=== PATIENT | female | born 1985 | race Caucasian/White ===

== ENCOUNTER 2016-03-16 11:14 | Inpatient (IN) | payer MEDICAID ==
[~2016-03-16] VITALS: Ht 142.2 cm; Wt 62.3 kg
[~2016-03-16 11:14] MED LIST: NIFEdipine PO; PREN-39
[2016-03-16 11:26] VITALS: Ht 142.2 cm; Wt 62.3 kg
[2016-03-16 11:30] VITALS: BP 124/78; PULSE 80; RESP 18
[2016-03-16] MEDS ORDERED: CARBOPROST 250 MCG INJ IM PRN ×2 (12:00→20:30)
[2016-03-16] MEDS ORDERED: MISOPROSTOL 200 MCG TAB PR PRN ×2 (12:00→20:30)
[2016-03-16] MEDS ORDERED: LACTATED RINGER'S 1,000 ML IV ONE (12:00)
[2016-03-16] MEDS ORDERED: OXYTOCIN 30 UNITS/LR 500 ML IV SCH (12:00)
[2016-03-16] MEDS ORDERED: CEFAZOLIN 2 GM/50 ML (PMX) 50 ML IV SCH (12:00)
[2016-03-16] MEDS ORDERED: OXYTOCIN 30 UNITS/LR 500 ML IV PRN ×2 (12:00→20:30)
[2016-03-16] MEDS ORDERED: METHYLERGONOVINE 0.2 MG INJ IM PRN ×2 (12:00→20:30)
[2016-03-16 12:20] LABS: EOSINOPHILS % 0.1 % (0.0-7.0); HEMATOCRIT 39.1 % (37.0-47.0); HEMOGLOBIN 13.3 g/dl (12.0-16.0); LYMPHOCYTES % 9.6 % (15.0-51.0); MEAN CORPUSCULAR VOLUME 94.2 fl (82.0-101.0); MEAN PLATELET VOLUME 9.4 fl (7.4-10.4); MONOCYTE # 0.6 10^3/ul (0.3-0.9); MONOCYTES % 5.5 % (0.0-11.0); NEUTROPHIL # 9.1 10^3/ul (1.6-7.5); NEUTROPHILS % 84.8 % (39.0-77.0); PLATELET COUNT 150 10^3/UL (140-440); RED BLOOD COUNT 4.15 10^6/ul (4.20-5.40); RED CELL DISTRIBUTION WIDTH 13.8 % (11.5-14.5); UNCORRECTED WBC 10.7 10^3/ul (4.8-10.8); WHITE BLOOD COUNT 10.7 10^3/ul (4.8-10.8)
[2016-03-16 12:23] LABS: CONDITION 1
[2016-03-16 12:28] LABS: INR 0.87; PROTIME 11.8 Sec (12.2-14.2); PT RATIO 0.9
[2016-03-16 12:29] LABS: PARTIAL THROMBOPLASTIN TIME 29.4 Sec (25.0-35.0)
[2016-03-16] MEDS ORDERED: LACTATED RINGER'S 1,000 ML IV SCH (13:30)
[2016-03-16] MEDS ORDERED: morphine SULFATE/PF (10 MG/10 ML) INJ ONE (15:52)
[2016-03-16] MEDS ORDERED: FENTAnyl 50 MCG/ML VIAL ONE (16:04)
[2016-03-16] MEDS ORDERED: OXYTOCIN 30 UNITS/LR 500 ML IV ONE (16:10)
[2016-03-16] MEDS ORDERED: EPHEDrine SULFATE 50 MG/5 ML SYG ONE (16:10)
[2016-03-16] MEDS ORDERED: ZOLPIDEM 5 MG TAB PO PRN (16:30)
[2016-03-16] MEDS ORDERED: NALOXONE (0.4 MG/ML) INJ IV PRN (16:30)
[2016-03-16] MEDS ORDERED: HYDROmorphONE 1 MG/ML SYG IV PRN ×2 (16:30)
[2016-03-16] MEDS ORDERED: ONDANSETRON 4 MG INJ IV PRN (16:30)
--- NOTE | 2016-03-16 17:20 | HP ---
Date/Time of Note Date/Time of Note DATE: 03/16/16 TIME: 17:16 OB - History Hx of Present Free Text/Dictation admitted for repeat C/S at term Last Menstrual Period: June 27, 2015 Estimated Due Date: Mar 23, 2016 : 2 Para: 1 Ultrasounds: Normal mid trimester US Obstetrical Complications: None Medical Complications: Other (Wilosn's palsy ) Past Family/Social History * Past Medical, Surgical, Family and Obstetric Histories reviewed from chart. Blood Type: O+ Rubella: immune RPR/VDRL: Negative GBS Status: Negative HBsAG: Negative OB Admission Exam Vital Signs Vital Signs Vital Signs Date Time Temp Pulse Resp B/P Pulse Ox O2 Delivery O2 Flow Rate FiO2 03/16/16 11:30 98.9 80 18 124/78 Room Air Physical Exam HEENT: Abnormal (left sided facial paralysis) Heart: Rhythm Normal Lungs: Clear Abdomen: WNL Extremities: Normal Reflexes: Normal Cervical Dilatation: 3cm Effacement: 50% Station: -3 Membranes: Intact Heart Rate: 130's Accelerations: Accelerations Present Decelerations: No Decelerations Varibility: Marked Contractions on Admission: 6-10 Minutes Apart Date/Time Contractions Began: ? Frequency of Contractions: ? Duration: ? Intensity: Moderate Last 72 hours Lab Results CBC & BMP 03/16/16 11:55 OB Assessment/Plan Other Assessment: term gestation previous C/S X 1 labor pains Other plan: repeat C/S BELKIS WHITING MD Mar 16, 2016 17:20
--- NOTE | 2016-03-16 17:23 | OPR ---
Operative Report Planned Procedure Procedure date Mar 16, 2016 Procedure(s) repeat C/S Performed by: BELKIS WHITING MD Assisting provider: SATHYA ENCARNACION M.D. Anesthesiologist: TARYN DEGROOT Anesthesia Type: spinal Procedure Description Under satisfactory anaesthesia a Pfannenstiel incision was made two fingerbreadth above and parallel to the symphysis of pubis around the previous scar and previous scar was removed Incision was extended laterally to the border of the Recti muscles on either sides. Incision was carried down with sharp and blunt dissection until fascia was reached. Anterior Recti muscle fascia was incised in mid portion and incision extended laterally to the border of skin incision. Fascia was mobilized from muscle superiorly and Recti muscles were from midline using sharp and blunt dissection. Peritoneum was visualized; Avoiding bowel and bladder it was incised . Incision was extended superiorly and inferiorly. Bladder blade was placed. Posterior peritoneum covering the lower segment of the uterus and lower segment of the uterus were incised.Low transverse uteine incision was made on lower segment of the uterus. Incision extended laterally to the border of Round Lig. on either sides and baby was delivered from OT. position . Amniotic fluid appeared clear. Cord blood was obtained and cord had 3 vessels . Placenta was delivered spontaneously and appeared intact and complete. Intrauterine cavity was rubbed with a laparotomy sponge. Uterine incision was closed in 2 layers using running stitches of No1 Monocryl. Hemostasis appeared secure. Ovaries and Fallopian tubes were within normal limits. Announcing needle, lap sponge and instrument count to be correct abdomen was closed in layers as follows: Peritoneum and Recti muscles with running stitches of 20 Vicryl. Fascia with running stitch of No 1 PDS. Subcutaneous tissue with running stitches of 20 Chromic and skin was closed using yoni. Patient tolerated the procedure well and was transferred to [facility] in good condition. Post-Procedure Post-procedure diagnosis S/P C/S Findings: Live Baby Specimen removed: No Complications: None Pt Condition post procedure: stable Disposition: PACU Physician Certification I, the undersigned physician, hereby certify that I have discussed the procedure described in this consent form with this patient (or the patient's legal customer field representative), including: * The risk and benefits of the procedure; * Any adverse reactions that may reasonably be expected to occur; * Any alternative efficacious methods of treatment which may be medically viable ; * The potential problems that may occur during recuperation; * Potential for blood transfusion and associated risks/benefits; and * Any research or economic interest I may have regarding this treatment. I further certify that the patient/legally responsible person was encouraged to ask question and that all questions were answered. BELKIS WHITING MD Mar 16, 2016 17:23
--- NOTE | 2016-03-16 19:29 | DELSUM ---
Delivery Summary A-C Datetime Report Generated by CPN: 03/16/2016 19:29 DELIVERY PERSONNEL Pay Agent: Sherman, Shila MATERNAL INFORMATION Delivery Anesthesia: Spinal Medications in Delivery: see anesthesia Estimated Blood Loss (ml): 500 Placenta Cultured: No Maternal Complications: None Other Maternal Complications: RIGHT SIDE PARALYSIS ON FACE LABOR SUMMARY EDC: 03/23/2016 00:00 No. Babies in Womb: 1 Attempted: No Labor Anesthesia: None LABOR INFORMATION Reason for Induction: Not Applicable Oxytocin: N/A Group B Beta Strep: Negative Antibiotics # of Doses: ancef 2 grams X1 dose Steroids Given: None Reason Steroids Not Administered: Not Applicable MEMBRANES Membranes Rupture Method: Artificial Rupture of Membranes: 03/16/2016 16:24 Length of Rupture (hr): 0.02 Amniotic Fluid Color: Clear Amniotic Fluid Amount: Moderate STAGES OF LABOR Stage 3 hr: 0 Stage 3 min: 1 CSECTION DELIVERY Primary Indication: Repeat Elective Secondary Indication: Repeat Elective CSection Urgency: Elective CSection Incidence: Repeat Labor: N/A Elective: N/A CSection Incision: Lower Uterine Transverse BABY A INFORMATION Infant Delivery Date/Time: 03/16/2016 16:25 Method of Delivery: Born in Route : No : N/A Forceps: N/A Vacuum Extraction: N/A Shoulder Dystocia : N/A SHOULDER DYSTOCIA BABY A Infant Delivery Date/Time: 03/16/2016 16:25 PRESENTATION/POSITION BABY A Presentation: Cephalic Presentation: Cephalic Cephalic Presentation: Vertex Vertex Position: Left Occipital Anterior Breech Presentation: N/A PLACENTA INFORMATION BABY A Placenta Delivery Time : 03/16/2016 16:26 Placenta Method of Delivery: Manual Removal Placenta Status: Delivered SCORES BABY A Heart Rate 1 min: >100 bpm Resp Effort 1 min: Good Cry Reflex Irritability 1 min: Cough/Sneeze/Pulls Away Muscle Tone 1 min: Active Motion Color 1 min: Blue/Pale Resuscitation Effort 1 min: Tactile Stimulation SCORE 1 MIN: 8 Heart Rate 5 min: >100 bpm Resp Effort 5 min: Good Cry Reflex Irritability 5 min: Cough/Sneeze/Pulls Away Muscle Tone 5 min: Active Motion Color 5 min: Body [place], Extremit Blue SCORE 5 MIN: 9 INFORMATION BABY A Gestational Age at Delivery: 39.0 Gestational Status: Full Term- 39- 40.6 Weeks Outcome : Liveborn Infant Condition : Stable Sex: Male IDENTIFICATION/MEDS BABY A ID Band Number: [id number] ID Band Location: Right Leg; Left Arm Sensor Applied: Yes Sensor Number: [id number] Sensor Location : Cord Clamp Vitamin K Given : Aquamephyton 1 mg IM; Left Thigh Erythromycin Given: Given Both Eyes WEIGHT/LENGTH BABY A Birthweight (gm): 3530 Infant Weight (lb): 7 Infant Weight (oz): 13 Infant Length (in): 19.50 Infant Length (cm): 49.53 CORD INFORMATION BABY A No. Cord Vessels: 3 Nuchal Cord : N/A Cord Blood Taken: Yes Suction: Mouth; Nose ASSESSMENT BABY A Complications: None Physical Findings at Delivery: Within Normal Limits Respirations: Appears Normal Control Panel Assembler/ALS Called : No Care By: KATERINA CARRASCO Transferred To: Remains with Mother
[2016-03-16 20:20] VITALS: BP 122/79; PULSE 103; RESP 20
[2016-03-16] MEDS ORDERED: ACETAMINOPHEN/CODEINE #3 TAB PO PRN (20:30)
[2016-03-16] MEDS ORDERED: NA PHOSPHATE/BIPHOS 133 ML ENEMA PR PRN (20:30)
[2016-03-16] MEDS ORDERED: LANOLIN 7 GM TUBE TOP PRN (20:30)
[2016-03-16] MEDS: CEFAZOLIN 2 GM/50 ML (PMX) 50 ML IV SCH (20:37)
[2016-03-16] MEDS: SENNA/DOCUSATE NA (8.6MG/50MG) TAB PO SCH (21:00)
[2016-03-16] MEDS: IBUPROFEN 800 MG TAB PO SCH (22:00)
[2016-03-16] MEDS: LACTATED RINGER'S 1,000 ML IV SCH (22:10)
[2016-03-17 00:40] VITALS: BP 109/65; PULSE 110; RESP 18
[2016-03-17] MEDS: CEFAZOLIN 2 GM/50 ML (PMX) 50 ML IV SCH ×2 (04:27→11:54)
[2016-03-17 04:32] VITALS: BP 104/59; PULSE 110; RESP 16
[2016-03-17] MEDS: LACTATED RINGER'S 1,000 ML IV SCH ×2 (05:06→12:21)
[2016-03-17] MEDS: CLINDAMYCIN 300 MG CAP PO SCH ×4 (05:39→23:37)
[2016-03-17] MEDS: IBUPROFEN 800 MG TAB PO SCH ×3 (06:00→21:41)
[2016-03-17 07:16] LABS: EOSINOPHILS % 0.1 % (0.0-7.0); HEMATOCRIT 33.9 % (37.0-47.0); HEMOGLOBIN 11.7 g/dl (12.0-16.0); MEAN CORPUSCULAR HEMOGLOBIN 32.4 pg (29.0-33.0); MEAN CORPUSCULAR HGB CONC 34.4 g/dl (32.0-37.0); MEAN CORPUSCULAR VOLUME 94.2 fl (82.0-101.0); MEAN PLATELET VOLUME 9.4 fl (7.4-10.4); MONOCYTE # 0.4 10^3/ul (0.3-0.9); MONOCYTES % 3.1 % (0.0-11.0); NEUTROPHIL # 11.3 10^3/ul (1.6-7.5); NEUTROPHILS % 88.8 % (39.0-77.0); PLATELET COUNT 138 10^3/UL (140-440); RED CELL DISTRIBUTION WIDTH 13.3 % (11.5-14.5); UNCORRECTED WBC 12.7 10^3/ul (4.8-10.8); WHITE BLOOD COUNT 12.7 10^3/ul (4.8-10.8)
[2016-03-17 07:39] LABS: CONDITION 1
[2016-03-17 08:00] VITALS: BP 113/65; PULSE 102; RESP 18
--- NOTE | 2016-03-17 08:53 | PN ---
Date/Time of Note Date/Time of Note DATE: 03/17/16 TIME: 08:51 Assessment/Plan VTE Prophylaxis VTE Prophylaxis Intervention: ambulation Lines/Catheters IV Catheter Type (from Nrs): Peripheral IV Assessment/Plan Assessment/Plan POD #1 S/P C/S will advance diet and ambulate Subjective 24 Hr Interval Summary NO BM passing flatus Exam/Review of Systems Vital Signs Vitals Vital Signs Date Time Temp Pulse Resp B/P Pulse Ox O2 Delivery O2 Flow Rate FiO2 03/17/16 04:32 98.8 110 16 104/59 Room Air 03/17/16 01:45 98 21 Intake and Output 03/16/16 03/16/16 03/17/16 15:00 23:00 07:00 Intake Total 2000 ml 175 ml 800 ml Output Total 600 ml 400 ml 1450 ml Balance 1400 ml -225 ml -650 ml Exam Free Text/Dictation VSS P/E: NL incision covered abdomen: soft BS + Results Result Diagram: 03/17/16 0627 BELKIS WHITING MD Mar 17, 2016 08:53
[2016-03-17] MEDS ORDERED: BISACODYL 10 MG SUPP PR ONE (10:00)
[2016-03-17] MEDS: SENNA/DOCUSATE NA (8.6MG/50MG) TAB PO SCH ×2 (10:04→21:41)
[2016-03-17 12:56] VITALS: BP 111/69; PULSE 106; RESP 18
[2016-03-17 16:00] VITALS: BP 114/73; PULSE 99; RESP 18
[2016-03-17] MEDS: OXYCODONE/ACETAMINOPHEN (5/325) TAB PO PRN (16:07)
[2016-03-17 20:00] VITALS: BP 114/62; PULSE 75; RESP 20
[2016-03-18] MEDS: OXYCODONE/ACETAMINOPHEN (5/325) TAB PO PRN ×3 (00:42→23:46)
[2016-03-18 04:14] VITALS: BP 110/65; PULSE 78; RESP 20
[2016-03-18] MEDS: CLINDAMYCIN 300 MG CAP PO SCH ×4 (05:40→23:46)
[2016-03-18] MEDS: IBUPROFEN 800 MG TAB PO SCH ×3 (05:40→21:59)
[2016-03-18 07:53] LABS: EOSINOPHILS % 0.1 % (0.0-7.0); HEMATOCRIT 31.7 % (37.0-47.0); LYMPHOCYTES # 1.1 10^3/ul (0.8-2.9); LYMPHOCYTES % 10.9 % (15.0-51.0); MEAN CORPUSCULAR HEMOGLOBIN 32.6 pg (29.0-33.0); MEAN CORPUSCULAR HGB CONC 34.6 g/dl (32.0-37.0); MEAN CORPUSCULAR VOLUME 94.1 fl (82.0-101.0); MONOCYTE # 0.5 10^3/ul (0.3-0.9); MONOCYTES % 4.8 % (0.0-11.0); NEUTROPHIL # 8.6 10^3/ul (1.6-7.5); NEUTROPHILS % 84.2 % (39.0-77.0); PLATELET COUNT 153 10^3/UL (140-440); RED BLOOD COUNT 3.37 10^6/ul (4.20-5.40); RED CELL DISTRIBUTION WIDTH 13.8 % (11.5-14.5); UNCORRECTED WBC 10.2 10^3/ul (4.8-10.8); WHITE BLOOD COUNT 10.2 10^3/ul (4.8-10.8)
[2016-03-18 07:55] LABS: CONDITION 1
[2016-03-18 08:00] VITALS: BP 121/76; PULSE 74; RESP 18
[2016-03-18] MEDS ORDERED: INFLUENZA VIRUS VACCINE 0.5 ML (DISPENSING) IM* ONE (09:00)
[2016-03-18] MEDS: SENNA/DOCUSATE NA (8.6MG/50MG) TAB PO SCH ×2 (09:16→21:59)
[2016-03-18] MEDS ORDERED: WITCH HAZEL/GLYCERIN PAD PR PRN (13:00)
[2016-03-18 15:37] VITALS: BP 132/72; PULSE 72; RESP 18
[2016-03-18 20:00] VITALS: BP 121/64; PULSE 70; RESP 20
--- NOTE | 2016-03-18 20:26 | DS ---
Date/Time of Note Date/Time of Note home next day DATE: 03/18/16 TIME: 20:24 Obstetrical Discharge Record Final Diagnosis Final Diagnosis: Term delivered Other Final Diagnosis S/P C/S Section Section: Repeat Condition on Discharge Physical Assessment Last Vitals: see nurses notes Voiding: Yes Bowel Movement: Yes Breast: Soft, non-tender, Filling Fundus: Firm Abdomen and Incision: soft bs + Incision: healing Episiotomy: NA Calf Tenderness: No Patient Condition: Good BELKIS WHITING MD Mar 18, 2016 20:26
--- NOTE | 2016-03-18 20:27 | DS ---
Date/Time of Note Date/Time of Note DATE: 03/18/16 TIME: 20:26 Discharge Summary Admission/Discharge Info Admit Date/Time Mar 16, 2016 at 11:14 Discharge Date/Time 03/19/2016 Final Diagnosis S/P C/S Patient Condition: Good Procedures repeat C/S Hx of Present Illness 30 y/o female had repeat C/S Hospital Course uncomplicated Home Meds Active Scripts [NIFEdipine] 10 MG CAP No Conflict Check, 20 MG PO Q6H, #60 0 Refills Prov:BELKIS WHITING MD 02/24/16 Reported Medications Vits W-Ca,Fe,Fa(<1MG) ( Vitamins) 1 Tab Tablet 01/13/10 Follow-up Plan 2 days in clinic for staple removal; Pending Labs Laboratory Tests Test 03/18/16 06:52 Basophils # 0.010^3/ul (0.0-0.1) Basophils % 0.0% (0.0-2.0) Eosinophils # 0.010^3/ul (0.0-0.5) Eosinophils % 0.1% (0.0-7.0) Hematocrit 31.7% (37.0-47.0) Hemoglobin 11.0g/dl (12.0-16.0) Lymphocytes # 1.110^3/ul (0.8-2.9) Lymphocytes % 10.9% (15.0-51.0) Mean Corpuscular Hemoglobin 32.6pg (29.0-33.0) Mean Corpuscular Hemoglobin Concent 34.6g/dl (32.0-37.0) Mean Corpuscular Volume 94.1fl (82.0-101.0) Mean Platelet Volume 9.0fl (7.4-10.4) Monocytes # 0.510^3/ul (0.3-0.9) Monocytes % 4.8% (0.0-11.0) Neutrophils # 8.610^3/ul (1.6-7.5) Neutrophils % 84.2% (39.0-77.0) Nucleated Red Blood Cells # 0.010^3/ul (0.0-0.0) Nucleated Red Blood Cells % 0.0/100WBC (0.0-0.0) Platelet Count 42797^3/UL (140-440) Red Blood Count 3.3710^6/ul (4.20-5.40) Red Cell Distribution Width 13.8% (11.5-14.5) White Blood Count 10.210^3/ul (4.8-10.8) BELKIS WHITING MD Mar 18, 2016 20:27
--- NOTE | 2016-03-18 20:28 | PD.PPDC ---
TOOL CRIB ATTENDANT Discharge Instruction Provider Information Physician Information 30 y/o female had repeat C/S Condition Patient Condition: Good Diet Diet: Resume Regular Diet Activity/Restrictions Activity: June Shower Restrictions: No Exercising No Lifting Nothing in the Vagina Return to Work or School: May 14, 2016 Wound/Drain Care Instructions Wound/Drain Care Instructions: Keep clean and dry Follow-up Follow-up with Physician: 2, Day/Days (in clinic for staple removal ) Return to clinic for TELEVISION [facility]ER[facility] Instructions: Fever greater than 101 Chills Excessive Vaginal Bleeding OB Instructions: Breast Tenderness Depression Surgical Instructions: Incisional Drainage Incisional Redness BELKIS WHITING MD Mar 18, 2016 20:28
[2016-03-18] MEDS ORDERED: IBUP800T25 PO (20:29)
[2016-03-18] MEDS ORDERED: PERCOCET PO (20:29)
[2016-03-19 04:33] VITALS: BP 114/64; PULSE 72; RESP 20
[2016-03-19] MEDS: CLINDAMYCIN 300 MG CAP PO SCH ×3 (05:26→17:13)
[2016-03-19] MEDS: IBUPROFEN 800 MG TAB PO SCH ×2 (05:26→14:00)
[2016-03-19 08:00] VITALS: BP 114/67; PULSE 81; RESP 18
[2016-03-19 08:26] LABS: EOSINOPHILS % 0.1 % (0.0-7.0); HEMATOCRIT 30.9 % (37.0-47.0); HEMOGLOBIN 10.7 g/dl (12.0-16.0); LYMPHOCYTES # 0.3 10^3/ul (0.8-2.9); LYMPHOCYTES % 3.3 % (15.0-51.0); MEAN CORPUSCULAR HEMOGLOBIN 32.8 pg (29.0-33.0); MEAN CORPUSCULAR HGB CONC 34.8 g/dl (32.0-37.0); MEAN CORPUSCULAR VOLUME 94.3 fl (82.0-101.0); MEAN PLATELET VOLUME 8.4 fl (7.4-10.4); MONOCYTE # 0.2 10^3/ul (0.3-0.9); MONOCYTES % 2.5 % (0.0-11.0); NEUTROPHIL # 9.3 10^3/ul (1.6-7.5); NEUTROPHILS % 94.1 % (39.0-77.0); PLATELET COUNT 180 10^3/UL (140-440); RED BLOOD COUNT 3.28 10^6/ul (4.20-5.40); RED CELL DISTRIBUTION WIDTH 13.8 % (11.5-14.5); UNCORRECTED WBC 9.9 10^3/ul (4.8-10.8); WHITE BLOOD COUNT 9.9 10^3/ul (4.8-10.8)
[2016-03-19 09:00] LABS: CONDITION 1; LH ANALYZER COMMENTS 1
[2016-03-19] MEDS ORDERED: MEASLES,MUMPS,RUBELLA VACCINE INJ SC* ONE (09:00)
[2016-03-19] MEDS ORDERED: DIPHTH/TET/ACEL PERTUSS (ADULT) 0.5 ML VIAL IM* ONE (09:00)
[2016-03-19] MEDS: OXYCODONE/ACETAMINOPHEN (5/325) TAB PO PRN (12:17)
[2016-03-19] MEDS: SENNA/DOCUSATE NA (8.6MG/50MG) TAB PO SCH (12:19)
[2016-03-19 16:00] VITALS: BP 115/68; PULSE 80; RESP 18
== END 2016-03-19 19:00 | disposition home or self-care (01) | DRG 766 ==
LOC: L-D 11:14 → PP1 20:22
PROVIDERS: ADMIT Obstetrics & Gynecology; ATTEND Obstetrics & Gynecology
PROC: 10D00Z1 Extraction of Products of Conception, Low, Open Approach (ICD-10-PCS; principal; 2016-03-16 14:30)
PROC: 3E00X4Z Introduction of Serum, Toxoid and Vaccine into Skin and Mucous Membranes, External Approach (ICD-10-PCS; 2016-03-19)
DX: O34.211 Maternal care for low transverse scar from previous cesarean delivery (principal); Z23 Encounter for immunization; Z3A.39 39 weeks gestation of pregnancy; Z37.0 Single live birth
CPT/HCPCS: 85025; 85610; 85730; 86592; 86850; 86900; 86901; 90686; 90715; 94760; 99464; J0690; J1170; J2274; J2590; J3010; J7120